=== PATIENT | female | born 1960 | race Caucasian/White ===

== ENCOUNTER 2022-11-28 15:59 | Emergency (ER) | payer OTHER ==
[~2022-11-28] VITALS: Ht 162.6 cm; Wt 64.0 kg
[2022-11-28 16:07] VITALS: BP 117/59
[2022-11-28] MEDS ORDERED: NAP5EC PO (20:04)
[2022-11-28] MEDS ORDERED: CEPH500T PO (20:04)
== END 2022-11-28 20:15 | disposition home or self-care (01) ==
LOC: ER 15:59
DX: L03.115 Cellulitis of right lower limb (principal)
CPT/HCPCS: 99283